=== PATIENT | male | born 1965 | race Caucasian/White ===

== ENCOUNTER 2020-05-03 11:01 | Emergency (ER) | payer MEDICARE, OTHER, SELFPAY ==
[2020-05-03 11:04] VITALS: BP 144/93; PULSE 99; RESP 17; TEMP 37; O2SAT 96; BMI 27.8
--- NOTE | 2020-05-03 11:14 | ED.DCSUM_ITS ---
History of Present Illness Chief Complaint: Allergic Reaction Informant: Patient Onset: Weeks Context: Gradual Onset Narrative: Patient presents with rash to the anterior neck. Patient states the skin is dry and itching. He started Cymbalta approximate 1 month ago then developed rash. He stopped taking the medication 4 days ago. He states he is put multiple topical agents on the rash but has not seen much improvement. He denies throat tightness or shortness of breath. He denies rash elsewhere. - Past Medical History (1) Asthma Status: Chronic (2) Anxiety and depression Status: Chronic (3) Neurocardiogenic syncope Status: Chronic Past Medical History - Allergies and Home Meds Allergies/Adverse Reactions: Allergies duloxetine [From Cymbalta] Allergy (Verified 05/03/20 11:03) Rash Iodinated Contrast Media [CONTRASTS] Allergy (Verified 05/03/20 11:03) Hives Primary Care Physician: Dorian Mckay MD [Primary Care Provider] - Prior records reviewed: Yes Smoking Status: Smoker, status unknown Review of Systems General: Denies: Chills, Fever Eyes: Denies: Visual changes - bilaterally ENT: Denies: Bilateral ear pain Cardiovascular: Denies: Chest pain Respiratory: Denies: Dyspnea, Cough Gastrointestinal: Denies: Abdominal pain, Vomiting, Diarrhea Musculoskeletal: Denies: Extremity Pain Skin: Reports: Rash Neurological: Denies: Headache Hematologic: Denies: Easy bruising, Easy bleeding Allergy: Denies: Uticaria Physical Exam Vital Signs/Narrative: Vital Signs Temp Pulse Resp BP Pulse Ox 05/03/20 11:04 98.6 F 99 17 144/93 H 96 Inital Vital Signs reviewed: Yes General: Well nourished, Well developed Head: Normocephalic ENT: Moist mucous membranes Neck: Supple Cardiovascular: Regular rate, Regular rhythm Respiratory: No distress, CTA bilaterally Abdomen: Soft, Nontender Skin: - - Dry erythematous rash along the lower left anterior neck. No open wounds. No sign of erythema multiforme. Neurological: Alert, Oriented x3 Psychological: Normal affect Diagnostic/Tx/Re-eval - Medical Decision Making Patient is already stopped Cymbalta, the assumed causative agent. Patient be written for hydrocortisone cream topically as well as a burst of p.o. steroids. He will follow-up with his primary care physician. ED Disposition - Plan for ED Patient: Disposition: Home or Assisted Living Diagnosis: Drug rash Instructions: ED Drug Reaction, Other Prescriptions: Prednisone [Deltasone] 40 mg PO DAILY #10 tab Transmission Status: Pending to [id number] Hydrocortisone 2.5% Crm [Hytone] 1 applic TOPICAL BID PRN PRN #1 tube PRN Reason: Rash/Topical Irritation Transmission Status: Pending to [id number] Referrals: Dorian Mckay MD [Primary Care Provider] - 1-2 Weeks
[2020-05-03] MEDS: Hydrocortisone 2.5% Crm 1 APPLIC TOPICAL (11:36)
[2020-05-03] MEDS: predniSONE 20 MG Tablet 40 MG PO (11:36)
== END 2020-05-03 11:44 | disposition home or self-care (01) ==
LOC: ED 11:38
PROVIDERS: Emergency Provider Emergency Medicine; PCP Internal Medicine
DX: L27.0 Generalized skin eruption due to drugs and medicaments taken internally (principal); T43.215A Adverse effect of selective serotonin and norepinephrine reuptake inhibitors, initial encounter; F32.9 Major depressive disorder, single episode, unspecified; F41.9 Anxiety disorder, unspecified; J45.909 Unspecified asthma, uncomplicated; Z79.899 Other long term (current) drug therapy
CPT/HCPCS: 99283

== ENCOUNTER 2020-05-25 15:41 | Emergency (ER) | payer MEDICARE, OTHER, SELFPAY ==
[2020-05-25 15:42] VITALS: BP 144/103; PULSE 107; RESP 18; TEMP 36.4; O2SAT 96; BMI 28.8
--- NOTE | 2020-05-25 16:08 | ED.DCSUM_ITS ---
History of Present Illness Chief Complaint: Lower Extremity Injury Detail of Chief Complaint: Leg swelling Informant: Patient Onset: Days Context: Gradual Onset Current Severity: Moderate Maximum Severity: Moderate Narrative: Patient presents secondary to lower extremity edema, left greater than right. Patient states one has been ongoing for about a week. He was seen by a nurse practitioner on May 22. He is scheduled to have an ultrasound of his leg tomorrow. He had blood work including CMP, BNP that were unremarkable. Patient presents back today stating the pain initially extended from his heel, up his calf, into the distal thigh. Patient states today the pain is coming up higher into his thigh. He is concerned he is a blood clot and was not comfortable waiting until tomorrow for an ultrasound. - Past Medical History (1) COPD (chronic obstructive pulmonary disease) Status: Chronic (2) Anxiety and depression Status: Chronic Past Medical History - Allergies and Home Meds Allergies/Adverse Reactions: Allergies duloxetine [From Cymbalta] Allergy (Verified 05/25/20 15:42) Rash Iodinated Contrast Media [CONTRASTS] Allergy (Verified 05/25/20 15:42) Hives Primary Care Physician: Dorian Mckay MD [Primary Care Provider] - Prior records reviewed: Yes Lives: Spouse/ Significant Other Smoking Status: Never smoker Review of Systems General: Denies: Chills, Fever Eyes: Denies: Visual changes - bilaterally ENT: Denies: Bilateral ear pain Cardiovascular: Denies: Chest pain Respiratory: Denies: Dyspnea, Cough Gastrointestinal: Denies: Abdominal pain, Nausea, Vomiting, Diarrhea Genitourinary: Denies: Dysuria Musculoskeletal: Reports: Swelling, Extremity Pain Skin: Denies: Rash Neurological: Denies: Headache Hematologic: Denies: Easy bruising, Easy bleeding Allergy: Denies: Uticaria Physical Exam Vital Signs/Narrative: Vital Signs Temp Pulse Resp BP Pulse Ox 05/25/20 15:42 97.6 F L 107 H 18 144/103 H 96 Inital Vital Signs reviewed: Yes General: Well nourished, Well developed Head: Normocephalic Eyes: Perrl, EOMI Neck: Supple Cardiovascular: Regular rate, Regular rhythm Respiratory: No distress, CTA bilaterally Abdomen: Soft, Nontender, Nondistended Extremities: - - 3+ edema left lower extremity, worse over the distal calf and foot. Mild tenderness along the medial thigh. No palpable cords. Mild edema to the right foot, no significant right leg edema. Neurological: Alert, Oriented x3 Psychological: Normal affect Diagnostic/Tx/Re-eval Laboratory Results 05/25/20 05/25/20 05/25/20 16:32 16:32 16:32 WBC 5.5 RBC 4.99 Hgb 14.8 Hct 43.9 MCV 88.0 MCH 29.7 MCHC 33.7 RDW Std Deviation 42.6 RDW Coeff of Neeta 13.2 Plt Count 218 MPV 8.6 Immature Gran % (Auto) 0.400 Neut % (Auto) 60.0 Lymph % (Auto) 22.4 Fajardo % (Auto) 11.5 H Eos % (Auto) 5.3 H Baso % (Auto) 0.4 Absolute Neuts (auto) 3.3 Absolute Lymphs (auto) 1.23 Nucleated RBC % 0 D-Dimer Quant (PE/DVT) 0.29 Sodium 140 Potassium 4.0 Chloride 107 Carbon Dioxide 26.0 Anion Gap 7 BUN 10 Creatinine 1.13 Estim Creat Clear Calc 72.99 Est GFR (MDRD) Af Amer 86 Est GFR (MDRD) Non-Af 71 BUN/Creatinine Ratio 8.8 L Glucose 124 H Calcium 8.4 L B-Natriuretic Peptide 05/25/20 16:32 WBC RBC Hgb Hct MCV MCH MCHC RDW Std Deviation RDW Coeff of Neeta Plt Count MPV Immature Gran % (Auto) Neut % (Auto) Lymph % (Auto) Fajardo % (Auto) Eos % (Auto) Baso % (Auto) Absolute Neuts (auto) Absolute Lymphs (auto) Nucleated RBC % D-Dimer Quant (PE/DVT) Sodium Potassium Chloride Carbon Dioxide Anion Gap BUN Creatinine Estim Creat Clear Calc Est GFR (MDRD) Af Amer Est GFR (MDRD) Non-Af BUN/Creatinine Ratio Glucose Calcium B-Natriuretic Peptide 13.4 - Medical Decision Making Blood work is obtained. CBC and chemistry studies are unremarkable. D-dimer at this time is negative. BNP is normal. Side. He is scheduled for an ultrasound of his leg tomorrow to rule out DVT. I did explain to him that with a normal D-dimer my clinical suspicion for this is now significantly lower. Because I have had one patient in the past with a clot noted on scan with a negative D-dimer, I did offer the patient a single dose of anticoagulant here to ease his mind. After discussing pros and cons he would prefer to have this. He will be given a dose of Lovenox. Rylan wrap is applied to the left leg to provide light compression. We discussed elevating his feet above the level of his heart. He reportedly is also been sitting at his computer desk for hours on end. We discussed getting up to walk and elevate his feet. Patient will follow up tomorrow for his ultrasound. ED Disposition - Plan for ED Patient: Disposition: Home or Assisted Living Diagnosis: Edema Instructions: ED Peripheral Edema, Unilateral Referrals: Dorian Mckay MD [Primary Care Provider] - As soon as possible
[2020-05-25] MEDS: fentaNYL 100 MCG/2 ML Ampul 25 MCG IV (16:33)
[2020-05-25 16:45] LABS: Absolute Lymphocyte Count 1.23 X10^3/uL (0.83-4.51); Absolute Neutrophil Count 3.3 X10^3/uL (2.0-7.7); Basophil# 0.02 X10^3/uL; Basophil% 0.4 % (0-1); Eosinophil# 0.29 X10^3/uL; Eosinophils% 5.3 % (0-5); Hematocrit 43.9 % (40-54); Hemoglobin 14.8 g/dL (13.0-16.5); Lymphocyte # 1.23 X10^3/ul (4.0); Lymphocyte % 22.4 % (19-41); Mean Corp Hgb Conc 33.7 g/dL (32-36); Mean Corpuscular Hgb 29.7 pg (27.0-32.0); Mean Platelet Vol. 8.6 fl (6.2-12.0); Monocyte# 0.63 X10^3/uL; Monocyte% 11.5 % (0-10); NRBC Flagged by Analyzer 0 % (0-5); Neutrophil # 3.29 X10^3/uL (2.7-7.7); Platelet Count 218 K/mm3 (150-450); RBC Distribution Width CV 13.2 % (11.6-14.6); RBC Distribution Width SD 42.6 fl (35.1-43.9); Red Blood Count 4.99 M/mm3 (4.6-6.2); White Blood Count 5.5 K/mm3 (4.4-11.0)
[2020-05-25 16:53] LABS: Anion Gap 7 (5-15); BUN 10 mg/dL (7-18); BUN/Creat Ratio 8.8 RATIO (10-20); Calcium,Total 8.4 mg/dL (8.5-10.1); Chloride 107 mmol/L (98-107); Creatinine, Serum 1.13 mg/dL (0.70-1.30); EST Glomerular Filtration Rate 71 mL/min (>60); Est Glom Filt Rate - Afr Amer 86 mL/min (>60); Estimated Creatinine Clearance 72.99 ml/min; Glucose 124 mg/dL (74-106); Sodium Level 140 mmol/L (136-145)
[2020-05-25 16:54] LABS: D-Dimer Quantitative (DVT/PE) 0.29 FEU/ug/m (0.27-0.49)
[2020-05-25 17:06] LABS: BNP,B-Type NATRIURETIC PEPTIDE 13.4 pg/mL (0-100)
[2020-05-25] MEDS: Enoxaparin 80 MG/0.8 ML Syringe SC (17:20)
[2020-05-25 17:36] VITALS: BP 143/86; PULSE 91; RESP 16; O2SAT 98
== END 2020-05-25 17:37 | disposition home or self-care (01) ==
PROVIDERS: Emergency Provider Emergency Medicine; PCP Internal Medicine
DX: R60.0 Localized edema (principal); J44.9 Chronic obstructive pulmonary disease, unspecified; F41.9 Anxiety disorder, unspecified; F32.9 Major depressive disorder, single episode, unspecified; Z79.899 Other long term (current) drug therapy
CPT/HCPCS: 80048; 83880; 85025; 85379; 96372; 96374; 99285; A4216